=== PATIENT | male | born 1975 | race Caucasian/White ===

== ENCOUNTER 2020-11-27 12:41 | Emergency (ER) | payer SELFPAY ==
[2020-11-27 12:45] VITALS: BP 143/102; PULSE 82; RESP 16; TEMP 36.7; O2SAT 96
[2020-11-27] MEDS: Normal Saline Flush 10 ML SYR IVP (14:00)
[2020-11-27] MEDS: Normal Saline 1,000 ML 1000 ML IV (14:00)
[2020-11-27 14:04] LABS: Abs Immature Grans 0.04 10^3/uL (0.0-0.06); Absolute Basophil Count 0.07 10^3/uL (0.0-0.2); Absolute Lymphocyte Count 2.98 10^3/uL (1.2-3.4); Absolute Monocyte Count 0.97 10^3/uL (0.1-0.8); Absolute Neutrophil Count 8.29 10^3/uL (1.2-6.7); Basophils % 0.6; Eosinophils % 0.8; HCT 48.6 % (40.0-50.0); HGB 16.8 g/dL (13.5-17.5); Immature Grans % 0.3; Lymphocytes % 23.9; MCH 31.5 pg (27.0-33.0); MCHC 34.6 % (32.0-36.0); MCV 91.2 fL (80-95); MPV 10.3 fL (8.0-11.0); Monocytes % 7.8; Neutrophils % 66.6; Nucleated RBC 0 %; Platelet Count 257 10^3/uL (130-400); RBC 5.33 10^6/uL (4.36-5.78); RDW 11.8 % (11.8-14.1); RDW-SD 39.1 fL; WBC 12.45 10^3/uL (4.4-10.8)
[2020-11-27 14:08] VITALS: BP 153/96; PULSE 70; RESP 20; TEMP 36.7; O2SAT 96
[2020-11-27 14:18] LABS: Lipase 117 U/L (73-393)
[2020-11-27 14:21] LABS: ALT 26 U/L (16-63); AST 14 U/L (15-37); Albumin 4.1 g/dL (3.4-5.0); Alkaline Phosphatase 89 U/L (46-116); Anion Gap 6.8 mmol/L (3-11); BUN 10 mg/dL (7-18); Bilirubin, Total 0.5 mg/dL (0.2-1.0); CO2 29.2 mmol/L (21.0-32.0); CREATININE 1.1 mg/dL (0.70-1.30); Calcium 9.1 mg/dL (8.5-10.1); Chloride 105 mmol/L (98-107); Glucose 97 mg/dL (74-106); Potassium 4.1 mmol/L (3.5-5.1); Sodium 141 mmol/L (136-145); Total Protein 7.4 g/dL (6.4-8.2)
--- NOTE | 2020-11-27 14:21 | NUR.NOTE ---
Nursing Note: Patient placed on care management list for follow up care to establish PCP
--- NOTE | 2020-11-27 14:59 | W.ED.GENAD ---
Discharge Plan Disposition Patient Disposition: HOME Condition: Stable Discharge Details Clinical Impression: Abdominal pain, Nausea vomiting and diarrhea Primary Care Provider: Delia,Local ED Provider: Yariel Shah Home Meds and New Rx's Prescriptions: No Action No Known Home Meds RF: 0 Discharge Instructions Instructions: Acute Nausea and Vomiting (ED), Abdominal Pain (ED) Additional Instructions: Laboratory values do not reveal any obvious emergent process. I do recommend clear liquid diet, advance as tolerated. Plenty of fluids to avoid dehydration. Jqga-skd-jwhmnge medication such as Imodium for symptomatic control. Please watch for new or worsening symptoms and return to the ER for any concerns. Lastly, I have placed you on the care management list to help expedite outpatient primary care follow-up for your ongoing medical needs Stand Alone Forms: Work Release Discharge Data Discharge Date/Time-TO BE ENTERED AT DEPARTURE: 11/27/20 15:10 Medical Decision Making This is a 45-year-old gentleman, denies significant past medical history. He reports nausea, vomiting, diarrhea, abdominal cramping after vomiting or before episodes of diarrhea. Reports similar sick contacts. Clinically he appears well, nontoxic, afebrile, pulse in the 80s, abdomen is soft, nontender, certainly nonsurgical. This very well may be related to his recent sick contacts. No recent travel or bad food exposure. Abdomen soft, nontender, only symptomatic after vomiting or prior to episodes of diarrhea. Extremely low suspicion for bowel obstruction, ileus, appendicitis, diverticulitis, etc. Patient does verbalize concern of dehydration, clinically does not appear dehydrated. Will obtain routine screening laboratories, give IV fluid, and reassess. Laboratory values reveal mild nonspecific leukocytosis, certainly consistent with mild nausea, vomiting, diarrhea, abdominal cramping. Given his leukocytosis is mild, he has no abdominal discomfort, I do not believe that emergent CT imaging is required. No vomiting or diarrhea while under my care. We discussed the [place] diet, adequate hydration, [id number] medication such as Imodium for symptomatic control, and given he does not have a primary care provider will place him on the care management list to help expedite outpatient primary care follow-up. He was given standard discharge and return precautions. Medical Records Medical records reviewed: Yes I reviewed the patient's medical records. Lab Data Lab results reviewed: Yes I reviewed the patient's lab results. Labs: Laboratory Tests Range/Units 11/27/20 11/27/20 11/27/20 13:46 13:55 13:55 WBC (4.4-10.8) 10^3/uL 12.45 H RBC (4.36-5.78) 10^6/uL 5.33 Hgb (13.5-17.5) g/dL 16.8 Hct (40.0-50.0) % 48.6 MCV (80-95) fL 91.2 MCH (27.0-33.0) pg 31.5 MCHC (32.0-36.0) % 34.6 RDW (11.8-14.1) % 11.8 Plt Count (130-400) 10^3/uL 257 MPV (8.0-11.0) fL 10.3 Immature Gran % 0.3 Neutrophils % 66.6 Lymphocytes % 23.9 Monocytes % 7.8 Eosinophils % 0.8 Basophils % 0.6 Nucleated RBC % % 0 Absolute Neutrophils (1.2-6.7) 10^3/uL 8.29 H Absolute Lymphocytes (1.2-3.4) 10^3/uL 2.98 Absolute Monocytes (0.1-0.8) 10^3/uL 0.97 H Absolute Eosinophils (0.0-0.7) 10^3/uL 0.10 Absolute Basophils (0.0-0.2) 10^3/uL 0.07 Sodium (136-145) mmol/L 141 Potassium (3.5-5.1) mmol/L 4.1 Chloride (98-107) mmol/L 105 Carbon Dioxide (21.0-32.0) mmol/L 29.2 Anion Gap (3-11) mmol/L 6.8 BUN (7-18) mg/dL 10 Creatinine (0.70-1.30) mg/dL 1.1 Estimated GFR/1.73 m2 (mL/min/1.73m2) >= 60.00 Glucose (74-106) mg/dL 97 Calcium (8.5-10.1) mg/dL 9.1 Magnesium (1.8-2.4) mg/dL 2.0 Total Bilirubin (0.2-1.0) mg/dL 0.5 AST (15-37) U/L 14 L ALT (16-63) U/L 26 Alkaline Phosphatase (46-116) U/L 89 Total Protein (6.4-8.2) g/dL 7.4 Albumin (3.4-5.0) g/dL 4.1 Lipase (73-393) U/L 117 HPI General Mode of arrival: ambulatory. Date/Time Provider Initiated Documentation: 11/27/20 12:56. Limitations to Documentation: no limitations. Information obtained by: patient. HPI Narrative: This is a 45-year-old gentleman, no significant past medical history, is a current smoker, presents to the ER today reporting several day history of nausea, vomiting, diarrhea, abdominal cramping after vomiting for just before episode of diarrhea. He denies recent travel or bad food exposure. Reports that people at work have had similar symptoms. He is stating he will need a work note to return on Monday. He has tried ozdz-jzm-ykocigx Motrin with little relief. He denies fever, chest pain, shortness of breath, blood in his vomit, black tarry stools or blood in his stools, painful urination. He denies previous abdominal surgeries. Denies significant change in his appetite. He is currently pain-free. Reports that overall his vomiting is lessening in frequency, only one episode this morning. Diarrhea has stayed the same with several episodes daily. Denies recent antibiotic use. Related Data Home Medications Medication Instructions Recorded Confirmed Unknown [No Known Home Meds] 02/20/16 11/27/20 Allergies Allergy/AdvReac Type Severity Reaction Status Date / Time No Known Allergies Allergy Unverified 11/27/20 12:50 General Stated Complaint: Nausea/Vomit/Diar BO: 3 Review of Systems Constitutional Constitutional: Denies fatigue, Denies fever(s) and Denies headache(s) ENT Ears, Nose, Mouth, and Throat: Denies headache(s) and Denies neck pain Cardiovascular Cardiovascular: Denies chest pain and Denies dyspnea Respiratory Respiratory: Denies cough and Denies dyspnea Gastrointestinal Gastrointestinal: Reports abdominal pain, Reports diarrhea, Reports nausea and Reports vomiting Genitourinary Genitourinary: Denies dysuria Musculoskeletal Musculoskeletal: Denies back pain and Denies neck pain Integumentary/Breasts Skin/Breast: Denies rash Neurologic Neurologic: Denies headache(s) Endocrine Endocrine: Denies fatigue [facility] Medical History No pertinent past medical history Surgical History H/O thumb surgery Social History Smoking/Tobacco Use Status: Current every day Smoking risk assessment performed?: Yes Alcohol Intake: current Alcohol Intake frequency: a few times a week Alcohol type: beer Drug use: Occasionally Substance use type: marijuana Do you feel safe at home: Yes Do you feel safe in your relationship?: Yes Exam Const General: cooperative, healthy appearing, comfortable and no acute distress Orientation: alert and awake HENKS Head: normal to inspection, normocephalic and atraumatic Face and sinus: normal facial exam Mouth: moist mucous membranes Throat: posterior oropharynx normal Eyes General: appearance normal, both eyes and all related structures Conjunctivae: conjunctivae normal Neck Neck: normal visual inspection, full ROM, trachea midline and supple Resp Effort & Inspection: normal respiratory effort and able to speak in complete sentences Auscultation: clear to auscultation bilaterally Cardio Rate: regular rate Rhythm: regular rhythm GI Inspection: normal to inspection Palpation: soft, not firm, no guarding and nontender Auscultation: normal bowel sounds Back/Spine/Pelvis Back: No back tenderness Skin General skin exam: no rashes or lesions noted Neuro General: patient alert, patient awake, moves all extremities and no focal motor deficits Cognition: normal cognition Speech: speech normal Gait: normal gait Sensory Exam: no sensory deficits noted Extrem General: normal to inspection, full ROM and capillary refill normal Psych Appearance: grossly normal Mental Status: mental status grossly normal Course Vital Signs Vital signs: Vital Signs Temperature 36.7 C 11/27/20 12:45 Pulse 82 11/27/20 12:45 Respiratory Rate 16 11/27/20 12:45 Blood Pressure 143/102 H 11/27/20 12:45 Pulse Oximetry 96 11/27/20 12:45 Temperature 36.7 C 11/27/20 14:08 Temperature Source Skin 11/27/20 14:08 Pulse 70 11/27/20 14:08 Respiratory Rate 20 11/27/20 14:08 Respiratory Effort Non-Labored 11/27/20 13:45 Blood Pressure 153/96 H 11/27/20 14:08 Blood Pressure Position Sitting 11/27/20 12:45 Pulse Oximetry 96 11/27/20 14:08 Oxygen Delivery Method Room Air 11/27/20 14:08 Oxygen Flow Rate 0 11/27/20 14:08 Pain Level 5 11/27/20 12:45 Lab/Test Results Lab/Test Results: Laboratory Tests Range/Units 11/27/20 11/27/20 11/27/20 13:46 13:55 13:55 WBC (4.4-10.8) 10^3/uL 12.45 H RBC (4.36-5.78) 10^6/uL 5.33 Hgb (13.5-17.5) g/dL 16.8 Hct (40.0-50.0) % 48.6 MCV (80-95) fL 91.2 MCH (27.0-33.0) pg 31.5 MCHC (32.0-36.0) % 34.6 RDW (11.8-14.1) % 11.8 Plt Count (130-400) 10^3/uL 257 MPV (8.0-11.0) fL 10.3 Immature Gran % 0.3 Neutrophils % 66.6 Lymphocytes % 23.9 Monocytes % 7.8 Eosinophils % 0.8 Basophils % 0.6 Nucleated RBC % % 0 Absolute Neutrophils (1.2-6.7) 10^3/uL 8.29 H Absolute Lymphocytes (1.2-3.4) 10^3/uL 2.98 Absolute Monocytes (0.1-0.8) 10^3/uL 0.97 H Absolute Eosinophils (0.0-0.7) 10^3/uL 0.10 Absolute Basophils (0.0-0.2) 10^3/uL 0.07 Sodium (136-145) mmol/L 141 Potassium (3.5-5.1) mmol/L 4.1 Chloride (98-107) mmol/L 105 Carbon Dioxide (21.0-32.0) mmol/L 29.2 Anion Gap (3-11) mmol/L 6.8 BUN (7-18) mg/dL 10 Creatinine (0.70-1.30) mg/dL 1.1 Estimated GFR/1.73 m2 (mL/min/1.73m2) >= 60.00 Glucose (74-106) mg/dL 97 Calcium (8.5-10.1) mg/dL 9.1 Magnesium (1.8-2.4) mg/dL 2.0 Total Bilirubin (0.2-1.0) mg/dL 0.5 AST (15-37) U/L 14 L ALT (16-63) U/L 26 Alkaline Phosphatase (46-116) U/L 89 Total Protein (6.4-8.2) g/dL 7.4 Albumin (3.4-5.0) g/dL 4.1 Lipase (73-393) U/L 117
[2020-11-27 15:01] VITALS: BP 154/99; PULSE 71; RESP 18; TEMP 36.7; O2SAT 98
--- NOTE | 2020-11-30 09:52 | PDOC.ERCMPRO ---
- If Service Date Differs Date of service: 11/30/20 Time of Service: 09:52 Care Management Progress Note Henry is seen in the ED for abdominal pain, nausea and vomiting. At the request of ED provider, EVA coordinates a referral to JASSI Hudson, of [facility], on-call provider, to assist Henry in obtaining a follow up appointment and in establishing care with a PCP. Henry is also referred to the [employer] Data [employer] Clerk at the [facility] to assist him in exploring options for health insurance.
== END 2020-11-27 15:10 | disposition home or self-care (01) ==
PROVIDERS: Emergency Provider Physician Assistant
DX: R11.2 Nausea with vomiting, unspecified (principal); R19.7 Diarrhea, unspecified; R10.9 Unspecified abdominal pain
CPT/HCPCS: 80053; 83690; 96360; 99284; 83735; 85025; 99283